=== PATIENT | female | born 1935 | race Caucasian/White ===

== ENCOUNTER 2017-07-24 19:04 | Emergency (ER) | payer OTHER ==
[2017-07-24 22:58] VITALS: BP 114/72
== END 2017-07-24 22:58 | disposition home or self-care (01) ==
LOC: ED 19:04
DX: S13.4XXA Sprain of ligaments of cervical spine, initial encounter (principal); M70.52 Other bursitis of knee, left knee; I10 Essential (primary) hypertension; X50.0XXA Overexertion from strenuous movement or load, initial encounter; Y93.89 Activity, other specified; Y92.89 Other specified places as the place of occurrence of the external cause; Y99.8 Other external cause status
CPT/HCPCS: J1885